=== PATIENT | female | born 1965 | race African-American/Black ===

== ENCOUNTER 2018-02-26 10:51 | Emergency (ER) | payer SELFPAY ==
[~2018-02-26] VITALS: Ht 154.9 cm; Wt 45.4 kg
[~2018-02-26 10:51] MED LIST: TYLENOL EXTRA500 MG ORAL; UNOBMED; ZOFRAN4 M3 ORAL
[2018-02-26] MEDS ORDERED: UNOBMED (10:56)
--- NOTE | 2018-02-26 11:24 | Emergency Room Report ---
History of Present Illness General Chief Complaint: Pain Source: Patient, EMS Present Illness HPI Ms. Matt states that her name is [facility] Matt. However, she asked me to call her Shae. She was found outside of a liquor store, sitting on the pavement. She informed EMS that she was beening sitting outside in the wet cold for the past 4 days. She has generalized weakness. She has achy legs/ feet. She is afraid to walk because she will lose her balance. She does have an address but she lost her mcgarry. She does not have any friends or family. She does not have any ID. She recently lost her EBT card. She stated that she was given a diagnosis of spinal meningitis through a blood test at [facility] one month ago. However, she was not hospitalized. She denies tobacco , alcohol or drug use. She does not take any medication. She denies history of mental illness. Allergies: Coded Allergies: PENICILLINS (Verified Allergy, Unknown, 02/26/18) Nursing Documentation-[facility] Past Medical History: No History, Except For Hx Cardiac Problems: No - Meningitis; Hx Diabetes: Yes Review of Systems Constitutional: Reports: malaise, weakness Cardiovascular: Denies: chest pain Gastrointestinal: Denies: abdominal pain All Other Systems: negative except mentioned in HPI Physical Exam Vital Signs Date Time Temp Pulse Resp B/P (MAP) Pulse Ox O2 Delivery O2 Flow Rate FiO2 02/26/18 10:48 96 18 132/86 99 Room Air Sp02 EP Interpretation: reviewed, normal General Appearance: normal inspection, well appearing, no apparent distress, alert, GCS 15, non-toxic, other - seems to be alert and insightful Eyes: bilateral eye normal inspection, bilateral eye PERRL ENT: normal pharynx, moist mucus membranes, other - poor dentition Neck: normal inspection, full range of motion, supple Respiratory: normal inspection, chest non-tender, lungs clear, normal breath sounds, no rhonchi, no respiratory distress, no retraction, no accessory muscle use Cardiovascular #1: normal inspection, normal peripheral pulses, regular rate, rhythm, no edema, no gallop, no JVD, no murmur, no rub Gastrointestinal: normal inspection, normal bowel sounds, non tender, soft, no mass, no organomegaly, no peritonitis Musculoskeletal: other - wet water logged skin from ankle to feet, no blisters Neurologic: normal inspection, alert, oriented x3, responsive Psychiatric: memory normal, no suicidal/homicidal ideation, depressed affect Lymphatic: normal inspection Medical Decision Making Diagnostic Impression: Primary Impression: medical screening evaluation Additional Impressions: Schizophrenia Homelessness ER Course Ms. Matt has been seen several times at our hospital. She normally is registered under [facility]. Our social worker palliative care came to the ER to provide further information. This patient has hx of schizophrenia. She has been homeless and "working the streets" for quite some time. She just requires food and clean clothes. After a brief observation, patient desired to be discharged. She did not have apparent psychosis. Denies SI/HI. I reviewed labs. No acute process. She ambulated without difficulty. Labs Test 02/26/18 11:40 White Blood Count 11.1 K/UL (4.8-10.8) Red Blood Count 5.72 M/UL (4.20-5.40) Hemoglobin 15.8 G/DL (12.0-16.0) Hematocrit 48.1 % (37.0-47.0) Mean Corpuscular Volume 84 FL (80-99) Mean Corpuscular Hemoglobin 27.6 PG (27.0-31.0) Mean Corpuscular Hemoglobin Concent 32.8 G/DL (32.0-36.0) Red Cell Distribution Width 11.6 % (11.6-14.8) Platelet Count 330 K/UL (150-450) Mean Platelet Volume 7.0 FL (6.5-10.1) Neutrophils (%) (Auto) 75.9 % (45.0-75.0) Lymphocytes (%) (Auto) 18.0 % (20.0-45.0) Monocytes (%) (Auto) 5.3 % (1.0-10.0) Eosinophils (%) (Auto) 0.3 % (0.0-3.0) Basophils (%) (Auto) 0.4 % (0.0-2.0) Sodium Level 136 MMOL/L (136-145) Potassium Level 4.0 MMOL/L (3.5-5.1) Chloride Level 98 MMOL/L (98-107) Carbon Dioxide Level 29 MMOL/L (21-32) Anion Gap 9 mmol/L (5-15) Blood Urea Nitrogen 24 mg/dL (7-18) Creatinine 1.1 MG/DL (0.55-1.30) Estimat Glomerular Filtration Rate > 60 mL/min (>60) Glucose Level 114 MG/DL (74-106) Calcium Level 10.9 MG/DL (8.5-10.1) Total Bilirubin 0.5 MG/DL (0.2-1.0) Aspartate Amino Transf (AST/SGOT) 20 U/L (15-37) Alanine Aminotransferase (ALT/SGPT) 31 U/L (12-78) Alkaline Phosphatase 136 U/L (46-116) Total Protein 9.7 G/DL (6.4-8.2) Albumin 3.8 G/DL (3.4-5.0) Globulin 5.9 g/dL Albumin/Globulin Ratio 0.6 (1.0-2.7) Salicylates Level 3.2 ug/mL (2.8-20) Acetaminophen Level 4 MCG/ML (10-30) Serum Alcohol < 3 mg/dL Last Vital Signs Date Time Temp Pulse Resp B/P (MAP) Pulse Ox O2 Delivery O2 Flow Rate FiO2 02/26/18 10:48 96 18 132/86 99 Room Air Disposition: HOME, SELF-CARE Condition: Stable Usha Pate MD Feb 26, 2018 11:24
[2018-02-26 11:37] VITALS: BP 159/141
[2018-02-26 12:10] LABS: BASOPHILS % (AUTO) 0.4 % (0.0-2.0); EOSINOPHILS % (AUTO) 0.3 % (0.0-3.0); HEMATOCRIT 48.1 % (37.0-47.0); HEMOGLOBIN 15.8 G/DL (12.0-16.0); MEAN CORPUSCULAR VOLUME 84 FL (80-99); MONOCYTES % (AUTO) 5.3 % (1.0-10.0); NEUTROPHILS % (AUTO) 75.9 % (45.0-75.0); PLATELET COUNT 330 K/UL (150-450); RED BLOOD COUNT 5.72 M/UL (4.20-5.40); RED CELL DISTRIBUTION WIDTH 11.6 % (11.6-14.8); WHITE BLOOD COUNT 11.1 K/UL (4.8-10.8)
[2018-02-26 12:16] LABS: ANION GAP 9 mmol/L (5-15); BLOOD UREA NITROGEN 24 mg/dL (7-18); CALCIUM 10.9 MG/DL (8.5-10.1); CARBON DIOXIDE 29 MMOL/L (21-32); CHLORIDE 98 MMOL/L (98-107); CREATININE 1.1 MG/DL (0.55-1.30); SODIUM 136 MMOL/L (136-145)
[2018-02-26 12:17] LABS: ALANINE AMINOTRANSFERASE 31 U/L (12-78); ALBUMIN 3.8 G/DL (3.4-5.0); ALBUMIN/GLOBULIN RATIO 0.6 (1.0-2.7); ALKALINE PHOSPHATASE 136 U/L (46-116); ASPARTATE AMINO TRANSFERASE 20 U/L (15-37); BILIRUBIN,TOTAL 0.5 MG/DL (0.2-1.0)
[2018-02-26 12:54] VITALS: BP 135/99
[2018-02-26 13:10] VITALS: BP 159/141
== END 2018-02-26 13:10 | disposition home or self-care (01) ==
LOC: EDBD → MERGE 10:51 → EMR 12:20
DX: F20.9 Schizophrenia, unspecified (principal); Z59.0 Homelessness; E11.9 Type 2 diabetes mellitus without complications; Z88.0 Allergy status to penicillin
CPT/HCPCS: 80053; 85025; 99283; G0480; 80329